=== PATIENT | female | born 1970 | race Caucasian/White ===

== ENCOUNTER 2019-11-14 16:29 | Emergency (ER) | payer OTHER, SELFPAY ==
[2019-11-14 16:47] VITALS: BP 120/75; PULSE 97; RESP 16; TEMP 37.2; O2SAT 100
--- NOTE | 2019-11-14 16:55 | ED.GENADULT ---
HPI - General Adult General Chief complaint: Dental/Oral Stated complaint: Tooth ache Time Seen by Provider: 11/14/19 16:55 Source: patient and RN notes reviewed Mode of arrival: ambulatory Limitations: no limitations History of Present Illness HPI narrative: 49-year-old female presents with complaints of RT upper dental pain for the past 3 days. 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 Antonina says she has a chipped tooth that has been present for awhile and over the last 3 days pain has increased. Dental appointment November 27, 2019. Denies any drainage. No fever or chills. No jaw swelling. No neck swelling. No limitation with speaking or swallowing. Has history of dental caries. No dental trauma. No oral lesions. Exacerbating factors consist of chewing on RT side, eating and drinking cold items. Relieving factors not eating on RT side and avoiding cold items. No dentures or bridges. Tolerating liquids well. Post menopausal for 2 years. Denies headaches, weakness, fatigue, myalgia, or facial swelling. Denies chest pain or dyspnea. Denies cough, rhinorrhea, congestion, sore throat, nausea, vomiting, abdominal pain, and diarrhea. Denies recent traveling. Denies concern for COVID-19 or exposures been home since [id number] order except for essential household needs and return home. Some parts of this dictation were generated by voice recognition software and may contain typographical and/or grammatical inaccuracies. Related Data Home Medications Medication Instructions Recorded Confirmed alendronate [Fosamax] 70 mg PO WEEKLY 11/14/19 11/14/19 amitriptyline 11/14/19 aspirin 11/14/19 atorvastatin 11/14/19 belimumab [Benlysta] 200 mg SUBCUT WEEKLY 11/14/19 11/14/19 celecoxib [Celebrex] 200 mg PO DAILY 11/14/19 11/14/19 escitalopram oxalate [Lexapro] 10 mg PO DAILY 11/14/19 11/14/19 gabapentin [Neurontin] 300 mg PO DAILY 11/14/19 11/14/19 hydroxychloroquine [Plaquenil] 200 mg PO BID 11/14/19 11/14/19 mycophenolate mofetil [CellCept] 1,000 mg PO BID 11/14/19 11/14/19 Allergies Allergy/AdvReac Type Severity Reaction Status Date / Time No Known Allergies Allergy Unknown Verified 11/14/19 17:01 Review of Systems Review of Systems: Narrative: CONSTITUTIONAL: Denies fever, chills, sweats. EYES: Denies visual changes, redness, discharge. ENT: Denies rhinorrhea, congestion, sore throat, otalgia. Complains of RT upper dental pain. CARDIOVASCULAR: Denies chest pain, palpitations, edema. RESPIRATORY: Denies dyspnea, wheezing, cough. GASTROINTESTINAL: Denies abdominal pain, nausea, vomiting, diarrhea. GENITOURINARY: Denies dysuria, hematuria, abnormal discharge. SKIN: Denies rash or itching. MUSCULOSKELETAL: Denies acute back pain, joint pain, or myalgia. NEUROLOGIC: Denies numbness or focal weakness. PSYCHIATRIC: Denies anxiety or depression. All systems reviewed & are unremarkable except as noted in HPI and below. [facility] Past Medical History Medical History delivery delivered Lupus Osteoporosis Raynaud's disease Surgical History Surgical History H/O section History of adenoidectomy History of tonsillectomy Family History Family History Sibling Hypertension Father Diabetes mellitus Grandparent Hypertension Grandparent Breast cancer Grandparent Pancreatic cancer Social History Social History Smoking packs per day: 0.5 Smoking cigarettes per day: 10.0 Years smoked: 31 Smoking pack-years: 15.50 Smoking status: Current every day smoker Tobacco type: cigarettes Second hand tobacco smoke exposure: No Alcohol intake: current Substance use: never
== END 2019-11-14 17:11 | disposition home or self-care (01) ==
PROVIDERS: Emergency Provider Nurse Practitioner Family
DX: K08.89 Other specified disorders of teeth and supporting structures (principal); F17.210 Nicotine dependence, cigarettes, uncomplicated
CPT/HCPCS: 99213; G0463

== ENCOUNTER 2020-02-06 09:45 | Emergency (ER) | payer OTHER, SELFPAY ==
--- NOTE | 2020-02-06 09:49 | ED.SKABFB ---
HPI - Skin/Abscess/Foreign Bdy General Chief complaint: Skin/Abscess/Foreign Body Stated complaint: other Time Seen by Provider: 02/06/20 09:49 Source: patient and RN notes reviewed History of Present Illness HPI narrative: Patient is a 49-year-old female who presents the urgent care with complaints of a rash to the abdomen, upper thighs and lower back. Patient states that she noticed on Tuesday after camping all weekend and staying in a popup tent. Patient states that her partner does not have any areas and neither does her daughter who both went camping and stay in the same home. Patient has not used anything to the area [id number]. States that it started with just a small area to the abdomen. States that the rash does itch. No other acute complaints. No acute distress noted. Patient read the plan of care. Related Data Home Medications Medication Instructions Recorded Confirmed amitriptyline 25 mg PO DAILY 02/06/20 02/06/20 amlodipine [Norvasc] 5 mg PO DAILY 02/06/20 02/06/20 aspirin 81 mg PO DAILY 02/06/20 02/06/20 atorvastatin [Lipitor] 40 mg PO DAILY 02/06/20 02/06/20 belimumab [Benlysta] 200 mg SUBCUT WEEKLY 02/06/20 02/06/20 celecoxib [Celebrex] 200 mg PO BID 02/06/20 02/06/20 escitalopram oxalate [Lexapro] 10 mg PO DAILY 02/06/20 02/06/20 gabapentin [Neurontin] 450 mg PO DAILY 02/06/20 02/06/20 hydroxychloroquine [Plaquenil] 200 mg PO BID 02/06/20 02/06/20 mycophenolate mofetil [CellCept] 500 mg PO QID 02/06/20 02/06/20 Allergies Allergy/AdvReac Type Severity Reaction Status Date / Time No Known Allergies Allergy Unknown Verified 02/06/20 10:02 Review of Systems Review of Systems: Narrative: CONSTITUTIONAL: Denies fever, chills, or sweats. EYES: Denies visual changes, redness, or discharge. ENT: Denies rhinorrhea, congestion, sore throat, or otalgia. CARDIOVASCULAR: Denies chest pain, palpitations, or edema. RESPIRATORY: Denies cough or dyspnea. GASTROINTESTINAL: Denies abdominal pain, nausea, vomiting, or diarrhea. GENITOURINARY: Denies dysuria or hematuria. SKIN: Reports of a raised rash to the abdomen, low back and bilateral legs MUSCULOSKELETAL: Denies back pain, joint pain, or myalgia. NEUROLOGIC: Denies headache, numbness, or weakness. All other systems reviewed are negative, except as documented in HPI. [facility] Social History Social History Smoking packs per day: 0.5 Smoking cigarettes per day: 10.0 Years smoked: 31 Smoking pack-years: 15.50 Smoking status: Current every day smoker Tobacco type: cigarettes Second hand tobacco smoke exposure: No Alcohol intake: current Substance use: never Gender identity (if verbalized by the patient): Female Comments At the time of my signature, I reviewed and agree with the nursing past medical, surgical, social, and family history. There is no relevant family history pertinent to the patient complaint. Exam Narrative: Exam Narrative: GENERAL: This is a well-nourished, well-developed patient, in no apparent distress. HEAD: normocephalic, atraumatic. EYES: PERRL. Sclera clear/white. Vision is grossly intact. EARS: External ears normal NOSE: External nose normal with no obvious nasal discharge, nares without redness, no rhinorrhea. THROAT: Mucous membranes moist NECK: Neck supple SKIN: Pinpoint pruritic erythemic papules noted to the lateral upper thighs, lower abdomen and lower back NEURO: awake, alert, and oriented to person, place and time. There were no obvious focal neurologic abnormalities. EXTREMITIES: No clubbing, cyanosis, or edema. Course Vital Signs Vital signs: Vital Signs Temperature 98.7 F 02/06/20 10:01 Pulse Rate 84 02/06/20 10:01 Respiratory Rate 18 02/06/20 10:01 Blood Pressure 111/65 02/06/20 10:01 Pulse Oximetry 98 02/06/20 10:01 Temperature 98.7 F 02/06/20 10:01 Pulse Rate 84 02/06/20 10:01 Respiratory Rate 18 02/06/20 10:01 B
[2020-02-06 10:01] VITALS: BP 111/65; PULSE 84; RESP 18; TEMP 37.1; O2SAT 98
== END 2020-02-06 10:20 | disposition home or self-care (01) ==
PROVIDERS: Emergency Provider Nurse Practitioner Family
DX: L30.9 Dermatitis, unspecified (principal); F17.210 Nicotine dependence, cigarettes, uncomplicated; Z86.73 Personal history of transient ischemic attack (TIA), and cerebral infarction without residual deficits; M81.0 Age-related osteoporosis without current pathological fracture
CPT/HCPCS: 99213; G0463

== ENCOUNTER 2021-08-26 11:54 | Outpatient (CLI) | payer OTHER, SELFPAY ==
--- NOTE | 2021-08-26 | ECG_ITS ---
Measurements Intervals Dustin Rate: 79 P: 50 IL: 145 QRS: 66 QRSD: 96 T: 64 QT: 367 QTc: 421 Interpretive Statements SINUS RHYTHM MINIMAL Q WAVES- INF/LAT LEADS BORDERLINE ECG Electronically Signed On 08-26-2021 13:18:46 [employer] by Chandu Montes D.O.
== END 2021-08-26 11:55 | disposition home or self-care (01) ==
PROVIDERS: PCP Physician Assistant; Visit Provider Physician Assistant
DX: R42 Dizziness and giddiness (principal)
CPT/HCPCS: 93005

== ENCOUNTER 2021-12-29 15:13 | Emergency (ER) | payer OTHER, SELFPAY ==
[2021-12-29 15:18] VITALS: BP 97/69; PULSE 85; RESP 16; TEMP 36.7; O2SAT 98
--- NOTE | 2021-12-29 15:30 | ED.URI ---
HPI - URI/Sore Throat General Chief Complaint: Upper Respiratory Infection Stated Complaint: fever Time Seen by Provider: 12/29/21 15:30 Source: patient and RN notes reviewed Mode of arrival: ambulatory Limitations: no limitations History of Present Illness HPI Narrative: 51-year-old female presents to the [facility] with complaints of laryngitis and postnasal drip since yesterday. No treatment prior to arrival. Denies fevers. No nausea vomiting or diarrhea. Chest pain, shortness of breath or abdominal pain MD elicited complaint: sore throat Related Data Home Medications Medication Instructions Recorded Confirmed amitriptyline 25 mg tablet 25 mg PO DAILY 02/06/20 02/06/20 amlodipine 5 mg tablet (Norvasc) 5 mg PO DAILY 02/06/20 02/06/20 aspirin 81 mg chewable tablet 81 mg PO DAILY 02/06/20 02/06/20 atorvastatin 40 mg tablet (Lipitor) 40 mg PO DAILY 02/06/20 02/06/20 belimumab 200 mg/mL subcutaneous 200 mg subcut WEEKLY 02/06/20 02/06/20 auto-injector (Benlysta) celecoxib 200 mg capsule (Celebrex) 200 mg PO BID 02/06/20 02/06/20 escitalopram oxalate 10 mg tablet 10 mg PO DAILY 02/06/20 02/06/20 (Lexapro) gabapentin 300 mg capsule 450 mg PO DAILY 02/06/20 02/06/20 (Neurontin) hydroxychloroquine 200 mg tablet 200 mg PO BID 02/06/20 02/06/20 (Plaquenil) mycophenolate mofetil 500 mg 500 mg PO QID 02/06/20 02/06/20 tablet (CellCept) Allergies Allergy/AdvReac Type Severity Reaction Status Date / Time No Known Allergies Allergy Unknown Verified 02/06/20 10:02 Review of Systems Review of Systems: All systems reviewed & are unremarkable except as noted in HPI and below Constitutional: Constitutional: Reports no additional constitutional complaints, Denies chills and Denies fever(s) Eyes: Eyes: Reports no additional eye complaints ENT: Reports as per HPI Cardiovascular: Cardiovascular: Reports no additional cardiovascular complaints Respiratory: Respiratory: Reports no additional respiratory complaints Gastrointestinal: Gastrointestinal: Reports no additional gastrointestinal complaints Musculoskeletal: Musculoskeletal: Reports no additional musculoskeletal complaints Integumentary/Breasts: Skin/Breast: Reports system reviewed and no additional complaints, except as docu Neurologic: Reports system reviewed and no additional complaints, except as documented Psychiatric: Psychiatric: Reports no additional psychiatric complaints Allergic/Immunologic: Allergic/Immunologic: Reports no additional allergic/immunologic complaints PMFSH Past Medical History Medical History (Updated 12/29/21 @ 15:59 by Rosaura Marroquin APRN) delivery delivered Lupus Osteoporosis Raynaud's disease Surgical History Surgical History H/O section History of adenoidectomy History of tonsillectomy Family History Family History Sibling Hypertension Father Diabetes mellitus Grandparent Hypertension Grandparent Breast cancer Grandparent Pancreatic cancer Social History Social History Smoking packs per day: 0.5 Smoking cigarettes per day: 10.0 Years smoked: 31 Smoking pack-years: 15.50 Smoking status: Current every day smoker Tobacco type: cigarettes Second hand tobacco smoke exposure: No Alcohol intake: current Substance use: never Gender identity (if verbalized by the patient): Female Comments At the time of my signature, I reviewed and agree with the nursing past medical, surgical, social, and family history. There is no relevant family history pertinent to the patient complaint. Exam Const: General: healthy appearing, no acute distress and alert Nutritional Appearance: well nourished Orientation/consciousness: patient oriented x3 Limitations: no limitations HENMT: Head: normal to inspection Ears:
[2021-12-29 19:49] LABS: SARS-CoV-2 RNA PCR Negative
== END 2021-12-29 16:06 | disposition home or self-care (01) ==
PROVIDERS: Emergency Provider Nurse Practitioner
DX: J06.9 Acute upper respiratory infection, unspecified (principal); J04.0 Acute laryngitis; Z20.822 Contact with and (suspected) exposure to COVID-19; F17.210 Nicotine dependence, cigarettes, uncomplicated; M81.0 Age-related osteoporosis without current pathological fracture; I73.00 Raynaud's syndrome without gangrene
CPT/HCPCS: 87081; 87426; 87804; 87880; 99213; C9803; G0463; U0003; U0005

== ENCOUNTER 2022-03-08 09:58 | Emergency (ER) | payer OTHER, SELFPAY ==
--- NOTE | ~2022-03-08 | XR_ITS ---
EXAMINATION: XR foot RT min 3V DATE: 03/08/2022 10:24 INDICATION: Lateral right foot pain TECHNIQUE: Dorsoplantar, two oblique and lateral views of the right foot were obtained. COMPARISON: None. FINDINGS: 25 degrees hallux valgus with developing bunion along the medial head of the first metatarsal. Alignm ent is otherwise normal. No fracture. Mild osteoarthritis at the first metatarsophalangeal and a few interphalangeal joints. Small Achilles and plantar calcaneal spurs. Soft tissues are unremarkable. IMPRESSION: 1. Mild degenerative skeletal changes in the right foot. No etiology identified for reported lateral sided right foot pain. Reviewed, dictated and finalized at location A.
[2022-03-08 10:07] VITALS: BP 110/70; PULSE 94; RESP 16; TEMP 36.8; O2SAT 100
--- NOTE | 2022-03-08 10:07 | ED.LOWEXIN ---
HPI - Extremity Injury (Lower) General Chief Complaint: Extremity Problem,Nontraumatic Stated Complaint: rt foot pain Time Seen by Provider: 03/08/22 10:08 Source: patient, RN notes reviewed and old records reviewed Mode of arrival: ambulatory Limitations: no limitations History of Present Illness HPI Narrative: 52-year-old female presents to the [facility] with Lateral right foot pain since Tuesday, 2 days. Patient states she has had a ganglion cyst drink and in this area. Denies any injury. No bruising or swelling noted. Tenderness to the lateral aspect along the fifth metatarsal. Pain is worse with pointing and medial motion Related Data Home Medications Medication Instructions Recorded Confirmed amitriptyline 25 mg tablet 25 mg PO DAILY 02/06/20 03/08/22 amlodipine 5 mg tablet (Norvasc) 5 mg PO DAILY 02/06/20 03/08/22 aspirin 81 mg chewable tablet 81 mg PO DAILY 02/06/20 03/08/22 atorvastatin 40 mg tablet (Lipitor) 40 mg PO DAILY 02/06/20 03/08/22 belimumab 200 mg/mL subcutaneous 200 mg subcut WEEKLY 02/06/20 03/08/22 auto-injector (Benlysta) celecoxib 200 mg capsule (Celebrex) 200 mg PO BID 02/06/20 03/08/22 gabapentin 300 mg capsule 450 mg PO DAILY 02/06/20 03/08/22 (Neurontin) hydroxychloroquine 200 mg tablet 200 mg PO BID 02/06/20 03/08/22 (Plaquenil) mycophenolate mofetil 500 mg 500 mg PO QID 02/06/20 03/08/22 tablet (CellCept) Allergies Allergy/AdvReac Type Severity Reaction Status Date / Time No Known Allergies Allergy Unknown Verified 02/06/20 10:02 Review of Systems Review of Systems: All systems reviewed & are unremarkable except as noted in HPI and below Constitutional: Constitutional: Reports no additional constitutional complaints, Denies chills and Denies fever(s) Eyes: Eyes: Reports no additional eye complaints ENT: Reports system reviewed and no additional complaints, except as documented Cardiovascular: Cardiovascular: Reports no additional cardiovascular complaints Respiratory: Respiratory: Reports no additional respiratory complaints Gastrointestinal: Gastrointestinal: Reports no additional gastrointestinal complaints Musculoskeletal: Musculoskeletal: Reports as per HPI (lateral right foot) Integumentary/Breasts: Skin/Breast: Reports system reviewed and no additional complaints, except as docu Neurologic: Reports system reviewed and no additional complaints, except as documented Psychiatric: Psychiatric: Reports no additional psychiatric complaints Allergic/Immunologic: Allergic/Immunologic: Reports no additional allergic/immunologic complaints PMFSH Past Medical History Medical History (Updated 03/08/22 @ 10:38 by Rosaura Marroquin APRN) delivery delivered Lupus Osteoporosis Raynaud's disease Surgical History Surgical History H/O section History of adenoidectomy History of tonsillectomy Family History Family History Sibling Hypertension Father Diabetes mellitus Grandparent Hypertension Grandparent Breast cancer Grandparent Pancreatic cancer Social History Social History Smoking packs per day: 0.5 Smoking cigarettes per day: 10.0 Years smoked: 31 Smoking pack-years: 15.50 Smoking status: Current every day smoker Tobacco type: cigarettes Second hand tobacco smoke exposure: No Alcohol intake: current Substance use: never Gender identity (if verbalized by the patient): Female Comments At the time of my signature, I reviewed and agree with the nursing past medical, surgical, social, and family history. There is no relevant family history pertinent to the patient complaint. Exam Const: General: healthy appearing, no acute distress and alert Nutritional Appearance: well nourished Orientation/consciousness: patient oriented x3 Limitations: n
== END 2022-03-08 10:54 | disposition home or self-care (01) ==
PROVIDERS: Emergency Provider Nurse Practitioner
DX: M77.8 Other enthesopathies, not elsewhere classified (principal); M19.071 Primary osteoarthritis, right ankle and foot; F17.210 Nicotine dependence, cigarettes, uncomplicated; M81.0 Age-related osteoporosis without current pathological fracture; I73.00 Raynaud's syndrome without gangrene; Z86.73 Personal history of transient ischemic attack (TIA), and cerebral infarction without residual deficits
CPT/HCPCS: 73630; 99213; G0463

== ENCOUNTER 2022-08-26 12:53 | Emergency (ER) | payer OTHER, SELFPAY ==
--- NOTE | ~2022-08-26 | XR_ITS ---
EXAMINATION: XR chest 2V DATE: 08/26/2022 13:22 INDICATION: Shortness of breath. TECHNIQUE: Frontal and lateral views of the chest were obtained. COMPARISON: Chest 2 views 03/24/2019, chest CT 11/03/2016 FINDINGS: The lungs are hyperexpanded, consistent with emphysema. No pneumonia, pleural effusion, or pneumothorax. The heart size is normal. IMPRESSION: 1. Emphysema. Reviewed, dictated and finalized at location A. [employer]CH[employer]IC[employer] IMPRESSION: 1. Emphysema.
[2022-08-26 13:02] VITALS: BP 114/72; PULSE 73; RESP 18; TEMP 36.4; O2SAT 100
--- NOTE | 2022-08-26 13:35 | ED.UPPEXIN ---
HPI - Extremity Injury (Upper) General Chief Complaint: Upper Respiratory Infection Stated Complaint: SOB/Fever Time Seen by Provider: 08/26/22 13:15 Source: patient Mode of arrival: ambulatory Limitations: no limitations History of Present Illness HPI narrative: Patient presents today complaining of 4 day history of illness. She started with some gastrointestinal issues last week, but these have since resolved. At that time, she tested positive for COVID-19. Two days ago she started with cough, headache, shortness of breath. She developed dark yellow sputum this morning. She has been taking Tylenol and ibuprofen with some relief. History of lupus and is currently taking immunosuppressants. 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 Related Data Home Medications Medication Instructions Recorded Confirmed amitriptyline 25 mg tablet 25 mg PO DAILY 02/06/20 08/26/22 amlodipine 5 mg tablet (Norvasc) 5 mg PO DAILY 02/06/20 08/26/22 aspirin 81 mg chewable tablet 81 mg PO DAILY 02/06/20 08/26/22 atorvastatin 40 mg tablet (Lipitor) 40 mg PO DAILY 02/06/20 08/26/22 belimumab 200 mg/mL subcutaneous 200 mg subcut WEEKLY 02/06/20 08/26/22 auto-injector (Benlysta) celecoxib 200 mg capsule (Celebrex) 200 mg PO BID 02/06/20 08/26/22 gabapentin 300 mg capsule 450 mg PO DAILY 02/06/20 08/26/22 (Neurontin) hydroxychloroquine 200 mg tablet 200 mg PO BID 02/06/20 08/26/22 (Plaquenil) mycophenolate mofetil 500 mg 500 mg PO QID 02/06/20 08/26/22 tablet (CellCept) Allergies Allergy/AdvReac Type Severity Reaction Status Date / Time No Known Allergies Allergy Unknown Verified 02/06/20 10:02 Review of Systems Review of Systems: CONSTITUTIONAL: Denies body aches, fever, chills, or sweats. EYES: Denies visual changes, redness, or discharge. ENT: Denies rhinorrhea, congestion, sore throat, or otalgia. CARDIOVASCULAR: Denies chest pain, palpitations, or edema. RESPIRATORY: + cough, shortness breast. GASTROINTESTINAL: Denies abdominal pain, nausea, vomiting, or diarrhea. GENITOURINARY: Denies dysuria or hematuria. SKIN: Denies rash, itching, or wounds. MUSCULOSKELETAL: Denies back pain, joint pain, or myalgia. NEUROLOGIC: Denies numbness, tingling, or weakness.+ headache PSYCH: Denies depression or anxiety. PMFSH Past Medical History Medical History (Updated 08/26/22 @ 13:43 by Fern Kunz, LOG YARD MANAGER, ) delivery delivered Lupus Osteoporosis Raynaud's disease Surgical History Surgical History H/O section History of adenoidectomy History of tonsillectomy Family History Family History Sibling Hypertension Father Diabetes mellitus Grandparent Hypertension Grandparent Breast cancer Grandparent Pancreatic cancer Social History Social History Smoking packs per day: 0.5 Smoking cigarettes per day: 10.0 Years smoked: 31 Smoking pack-years: 15.50 Smoking status: Current every day smoker Tobacco type: cigarettes Second hand tobacco smoke exposure: No Alcohol intake: current Substance use: never Living arrangements: with family Gender identity (if verbalized by the patient): Female Comments At time of signature, I have reviewed and agree with nursing past medical, surgical, social and family history unless otherwise noted. Please see nursing chart for further information. There is no relevant family history pertinent to the presenting complaint Exam Narrative: GENERAL: Mildly ill-appearing, well-nourished, and in no acute distress. HEAD: Normocephalic, atraumatic. EYES: EOMI. No redness or drainage. Conjunctivae normal. ENT: Mucous membranes pink and moist. Nares clear. No rhinorrhea. TMs normal bilaterally. Throat normal. Uvula midline. NECK: Normal AROM. Supple. No lymphadenopathy. CHEST
== END 2022-08-26 13:50 | disposition home or self-care (01) ==
PROVIDERS: Emergency Provider Nurse Practitioner
DX: U07.1 COVID-19 (principal); F17.210 Nicotine dependence, cigarettes, uncomplicated; M81.0 Age-related osteoporosis without current pathological fracture; I73.00 Raynaud's syndrome without gangrene; Z79.82 Long term (current) use of aspirin
CPT/HCPCS: 71046; 87426; 87804; 99213; C9803; G0463

== ENCOUNTER 2023-03-07 09:40 | Emergency (ER) | payer BC, OTHER, SELFPAY ==
[2023-03-07 09:55] VITALS: BP 102/68; PULSE 89; RESP 16; TEMP 36.8; O2SAT 100
--- NOTE | 2023-03-07 10:20 | ED.GENADULT ---
HPI - General Adult General Chief complaint: Back Pain/Injury Stated complaint: back pain Time Seen by Provider: 03/07/23 10:11 Source: patient and RN notes reviewed Mode of arrival: ambulatory Limitations: no limitations History of Present Illness HPI narrative: Patient presents today complaining of bilateral low back pain x2 weeks. Patient states 2 weeks ago prior to onset of her back symptoms she had some dysuria for 2 days, but then it resolved completely. Her back pain has since spread to her suprapubic area, then she states it has spread to her bilateral hips. Denies numbness or tingling in her legs or feet, or genitalia. Denies loss of bowel or bladder control. She currently rates her pain 7/10, which increases with movement or standing. She has been taking ibuprofen and applying heat without relief. History of lupus for which she takes Plaquenil and Benlysta. She recently stopped her cellcept Related Data Home Medications Medication Instructions Recorded Confirmed amitriptyline 25 mg tablet 25 mg PO DAILY 02/06/20 03/07/23 amlodipine 5 mg tablet (Norvasc) 5 mg PO DAILY 02/06/20 03/07/23 aspirin 81 mg chewable tablet 81 mg PO DAILY 02/06/20 03/07/23 atorvastatin 40 mg tablet (Lipitor) 40 mg PO DAILY 02/06/20 03/07/23 belimumab 200 mg/mL subcutaneous 200 mg subcut WEEKLY 02/06/20 03/07/23 auto-injector (Benlysta) celecoxib 200 mg capsule (Celebrex) 200 mg PO BID 02/06/20 03/07/23 gabapentin 300 mg capsule 450 mg PO DAILY 02/06/20 03/07/23 (Neurontin) hydroxychloroquine 200 mg tablet 200 mg PO BID 02/06/20 03/07/23 (Plaquenil) Allergies Allergy/AdvReac Type Severity Reaction Status Date / Time No Known Allergies Allergy Unknown Verified 03/07/23 10:00 Review of Systems Review of Systems: CONSTITUTIONAL: Denies body aches, fever, chills, or sweats. EYES: Denies visual changes, redness, or discharge. ENT: Denies rhinorrhea, congestion, sore throat, or otalgia. CARDIOVASCULAR: Denies chest pain, palpitations, or edema. RESPIRATORY: Denies cough or dyspnea. GASTROINTESTINAL: Denies abdominal pain, nausea, vomiting, or diarrhea.+ suprapubic discomfort GENITOURINARY: Denies dysuria or hematuria. SKIN: Denies rash, itching, or wounds. MUSCULOSKELETAL:+ low back pain, bilateral hip pain NEUROLOGIC: Denies headache, numbness, tingling, or weakness. PSYCH: Denies depression or anxiety. [facility] Past Medical History Medical History (Updated 03/07/23 @ 10:37 by Fern Kunz, ELECTRONIC EQUIPMENT INSTALLER, ) delivery delivered Lupus Osteoporosis Raynaud's disease Surgical History Surgical History H/O section History of adenoidectomy History of tonsillectomy Family History Family History Sibling Hypertension Father Diabetes mellitus Grandparent Hypertension Grandparent Breast cancer Grandparent Pancreatic cancer Social History Social History Smoking packs per day: 0.5 Smoking cigarettes per day: 10.0 Years smoked: 31 Smoking pack-years: 15.50 Smoking status: Current every day smoker Tobacco type: cigarettes Second hand tobacco smoke exposure: No Alcohol intake: current Substance use: never Living arrangements: with family Gender identity (if verbalized by the patient): Female Comments At time of signature, I have reviewed and agree with nursing past medical, surgical, social and family history unless otherwise noted. Please see nursing chart for further information. There is no relevant family history pertinent to the presenting complaint Exam Narrative: GENERAL: Well-appearing, well-nourished, and in no acute distress. HEAD: Normocephalic, atraumatic. EYES: EOMI. No redness or drainage. Conjunctivae normal. ENT: Mucous membranes pink and moist. NECK: Normal AROM. CHEST
== END 2023-03-07 10:47 | disposition home or self-care (01) ==
PROVIDERS: Emergency Provider Nurse Practitioner; PCP Emergency Medicine
DX: M54.50 Low back pain, unspecified (principal); F17.210 Nicotine dependence, cigarettes, uncomplicated; M81.0 Age-related osteoporosis without current pathological fracture; I73.00 Raynaud's syndrome without gangrene; Z79.82 Long term (current) use of aspirin
CPT/HCPCS: 81003; 99213; G0463

== ENCOUNTER 2023-11-19 09:59 | Emergency (ER) | payer BC, OTHER, SELFPAY ==
--- NOTE | ~2023-11-19 | XR_ITS ---
EXAMINATION: XR chest 2V DATE: 11/19/2023 10:38 INDICATION: 2 days of productive cough TECHNIQUE: frontal and lateral views of the chest were obtained. COMPARISON: Chest radiograph dated 09/05/2022 FINDINGS: Increased lucency in the bilateral upper lung zones consistent with emphysema which is better appreci ated on CT dated 11/03/2016. No other airspace opacities, pulmonary edema, pleural effusion or pneumot horax. The cardiomediastinal silhouette is normal. Mild thoracic spondylosis. IMPRESSION: 1. Mild emphysema. No acute cardiopulmonary disease. Reviewed, dictated and finalized at location A.
[2023-11-19 10:12] VITALS: BP 108/82; PULSE 84; RESP 16; TEMP 36.8; O2SAT 98
--- NOTE | 2023-11-19 10:25 | ED.URI ---
HPI - URI/Sore Throat General Chief Complaint: Upper Respiratory Infection Stated Complaint: chest hurts,cough,SOB Time Seen by Provider: 11/19/23 10:15 Source: patient Mode of arrival: ambulatory Limitations: no limitations History of Present Illness HPI Narrative: Antonina is a 53-year-old female patient presenting to the clinic today with complaints of chest congestion, cough, hurts to take a deep breath, and shortness of breath x 10 days. She reports symptoms started with nasal congestion/sinus pressure and now is gone down into her chest. She denies any fever or chills. Feels more short of breath upon exertion. Cough is productive bringing up yellow/green phlegm. She is a current smoker. States that her grand babies got her sick. MD elicited complaint: cough, rhinorrhea, nasal congestion and other (Chest congestion, shortness breast) Related Data Home Medications Medication Instructions Recorded Confirmed amitriptyline 25 mg tablet 25 mg PO DAILY 02/06/20 11/19/23 amlodipine 5 mg tablet (Norvasc) 5 mg PO DAILY 02/06/20 11/19/23 aspirin 81 mg chewable tablet 81 mg PO DAILY 02/06/20 11/19/23 atorvastatin 40 mg tablet (Lipitor) 40 mg PO DAILY 02/06/20 11/19/23 belimumab 200 mg/mL subcutaneous 200 mg subcut WEEKLY 02/06/20 11/19/23 auto-injector (Benlysta) celecoxib 200 mg capsule (Celebrex) 200 mg PO BID 02/06/20 11/19/23 gabapentin 300 mg capsule 450 mg PO DAILY 02/06/20 11/19/23 (Neurontin) hydroxychloroquine 200 mg tablet 200 mg PO BID 02/06/20 11/19/23 (Plaquenil) Allergies Allergy/AdvReac Type Severity Reaction Status Date / Time No Known Allergies Allergy Unknown Verified 11/19/23 10:30 Review of Systems Review of Systems: Pertinent positives per HPI. Patient denies any fever, chills, rash, headache, visual changes, dizziness, chest pain, palpitations, nausea, vomiting, diarrhea, constipation, abdominal pain, or any urinary issues. [facility] Past Medical History Medical History (Updated 11/19/23 @ 10:57 by Fazal Delarosa APRN) delivery delivered Lupus Osteoporosis Raynaud's disease Surgical History Surgical History H/O section History of adenoidectomy History of tonsillectomy Family History Family History Sibling Hypertension Father Diabetes mellitus Grandparent Hypertension Grandparent Breast cancer Grandparent Pancreatic cancer Social History Social History Smoking packs per day: 0.5 Smoking cigarettes per day: 10.0 Years smoked: 31 Smoking pack-years: 15.50 Smoking status: Current every day smoker Tobacco type: cigarettes Second hand tobacco smoke exposure: No Alcohol intake: current Substance use: never Living arrangements: with family Gender identity (if verbalized by the patient): Female Comments At the time of my signature, I reviewed and agree with the nursing past medical, surgical, social, and family history. There is no relevant family history pertinent to the patient complaint. Exam Narrative: General: Well-developed, well nourished, in no apparent distress Head: Normocephalic, atraumatic Eyes: Pupils equally round and reactive to light bilaterally, EOM intact, sclera and conjunctive clear, no discharge, lids normal Ears: TMs intact and clear, ear canals clear, no drainage, grossly hearing normal. Nose: Nares patent, yellow nasal discharge, moderate inflammation, maxillary sinus tenderness. Mouth: Oral pharynx without lesions or masses, good dentition, MMM. Neck: Supple, trachea midline, no enlargement of anterior or posterior cervical nodes, no thyroid masses or goiter palpable. Cardio: Regular rate and rhythm, s1 and s2 normal, no murmur appreciated. Resp: Fine crackles heard over the lower bases bilaterally, no rhonchi, wheezing o
== END 2023-11-19 11:05 | disposition home or self-care (01) ==
PROVIDERS: Emergency Provider Nurse Practitioner Family
DX: J01.90 Acute sinusitis, unspecified (principal); J43.8 Other emphysema; F17.210 Nicotine dependence, cigarettes, uncomplicated; M81.0 Age-related osteoporosis without current pathological fracture; I73.00 Raynaud's syndrome without gangrene; Z79.82 Long term (current) use of aspirin
CPT/HCPCS: 71046; 99213; G0463

== ENCOUNTER 2024-07-07 12:54 | Emergency (ER) | payer BC, OTHER, SELFPAY ==
[2024-07-07 13:03] VITALS: BP 110/76; PULSE 92; RESP 16; TEMP 36.8; O2SAT 100
--- NOTE | 2024-07-07 13:21 | ED.URI ---
HPI - URI/Sore Throat General Chief Complaint: Upper Respiratory Infection Stated Complaint: Sinus Time Seen by Provider: 07/07/24 13:21 Source: patient Mode of arrival: ambulatory Limitations: no limitations History of Present Illness HPI Narrative: 54-year-old female presents with complaint of sinus congestion, nasal congestion, sinus headache, postnasal drainage and cough for the past 8-9 days. Afebrile. Taking [id number] Mucinex with no relief of symptoms.Taking Afrin at night to sleep. Reports sinus headache is really bad right now . Afebrile. All systems reviewed and negative except as noted above. Related Data Home Medications ?Medication ?Instructions ?Recorded ?Confirmed ?Last Taken ?Type amitriptyline 25 mg tablet 25 mg PO DAILY 02/06/20 11/19/23 Unknown History amlodipine 5 mg tablet (Norvasc) 5 mg PO DAILY 02/06/20 11/19/23 Unknown History aspirin 81 mg chewable tablet 81 mg PO DAILY 02/06/20 11/19/23 Unknown History atorvastatin 40 mg tablet (Lipitor) 40 mg PO DAILY 02/06/20 11/19/23 Unknown History belimumab 200 mg/mL subcutaneous 200 mg subcut WEEKLY 02/06/20 11/19/23 Unknown History auto-injector (Benlysta) celecoxib 200 mg capsule (Celebrex) 200 mg PO BID 02/06/20 11/19/23 Unknown History gabapentin 300 mg capsule 450 mg PO DAILY 02/06/20 11/19/23 Unknown History (Neurontin) hydroxychloroquine 200 mg tablet 200 mg PO BID 02/06/20 11/19/23 Unknown History (Plaquenil) Allergies Allergy/AdvReac Type Severity Reaction Status Date / Time amoxicillin (From Augmentin) AdvReac Intermediate Nausea and Verified 07/07/24 13:19 Vomiting clavulanic acid (From AdvReac Intermediate Nausea and Verified 07/07/24 13:19 Augmentin) Vomiting Review of Systems Review of Systems: CONSTITUTIONAL: Denies fever, chills, or sweats. EYES: Denies visual changes, redness, or discharge. ENT: Reports rhinorrhea, congestion, sinus pressure, sinus congestion, postnasal drainage. Denies sore throat, or otalgia. CARDIOVASCULAR: Denies chest pain, palpitations, or edema. RESPIRATORY: reports cough . Denies dyspnea. GASTROINTESTINAL: Denies abdominal pain, nausea, vomiting, or diarrhea. GENITOURINARY: Denies dysuria or hematuria. SKIN: Denies rash or itching. MUSCULOSKELETAL: Denies back pain, joint pain, or myalgia. NEUROLOGIC: Denies headache, numbness, or weakness. PSYCHIATRIC: Denies anxiety or depression. All other systems reviewed are negative, except as documented in HPI. COUNT INCLUDES THE [facility] Past Medical History Medical History (Updated 07/07/24 @ 13:30 by Pinky Tejada NP) Osteoporosis Raynaud's disease Lupus delivery delivered Surgical History Surgical History History of adenoidectomy History of tonsillectomy H/O section Family History Family History Sibling Hypertension Father Diabetes mellitus Grandparent Hypertension Grandparent Breast cancer Grandparent Pancreatic cancer Social History Social History Smoking packs per day: 0.5 Smoking cigarettes per day: 10.0 Years smoked: 31 Smoking pack-years: 15.50 Smoking status: Current every day smoker Tobacco type: cigarettes Second hand tobacco smoke exposure: No Alcohol intake: current Substance use: never Living arrangements: with family Gender identity (if verbalized by the patient): Female Comments At time of signature, agree with nursing past medical, surgical, social and family history. There is no relevant family history pertinent to the presenting complaint. Exam Narrative: GENERAL: This is a well-nourished, well-developed patient, in no apparent distress. HEAD: normocephalic, atraumatic. EYES: PERRL. Sclera clear/white. Vision is grossly intact. EARS: External ears normal, auditory canals clear and without drainage, TMs normal without perforation. Hearing grossly intact. NOSE: External nose normal with moderate congestion, purulent nasal drainage, frontal and maxillary sinus tenderness on palpation THROAT: Mucous membranes moist, erythematous with postnasal drainage NECK: Neck supple, non-tender without lymphadenopathy, masses or thyromegaly. CARDIOVASCULAR: Regular rate and rhythm without murmurs, gallops, or rubs. RESPIRATORY: Clear to auscultation. Breath sounds equal bilaterally. No wheezes, rales, or rhonchi. SKIN: warm, Dry, intact with no suspicious lesions or rash, good texture and turgor. NEURO: awake, alert, and oriented to person, place and time. There were no obvious focal neurologic abnormalities. EXTREMITIES: No joint tenderness, effusion, or edema noted. Course Course Level of Care: Express Care Visit Vital Signs Vital signs: Vital Signs Temperature 36.8 C 07/07/24 13:03 Pulse Rate 92 07/07/24 13:03 Respiratory Rate 16 07/07/24 13:03 Blood Pressure 110/76 07/07/24 13:03 Pulse Oximetry 100 07/07/24 13:03 Oxygen Delivery Room Air 07/07/24 13:03 Temperature 36.8 C 07/07/24 13:03 Pulse Rate 92 07/07/24 13:03 Respiratory Rate 16 07/07/24 13:03 Blood Pressure 110/76 07/07/24 13:03 Pulse Oximetry 100 07/07/24 13:03 Oxygen Delivery Room Air 07/07/24 13:03 reviewed MDM - URI/Sore Throat MDM Narrative Medical decision making narrative: will treat patient with antibiotic for bacterial sinusitis due to duration of symptoms and exam findings. Patient is aware of diagnosis, understands and agrees to treatment plan. Anticipatory guidance given. Patient agrees to follow-up as directed and is aware of reasons to seek care at the emergency department. Portions of this record may have been created with voice recognition software Differential Diagnosis Differential diagnosis: Likely upper respiratory infection, sinusitis and viral infection Discharge Plan Discharge Clinical Impression: Acute bacterial sinusitis Patient Disposition: Home, Self-Care Condition: Stable Instructions: Antibiotic Form, Sinusitis (ED) Additional Instructions: take antibiotic as prescribed until gone. Taking ctxq-kxy-aohoygb antihistamine daily such as Claritin or Zyrtec. Use an [id number]-jtl-[id number] nasal spray such as Flonase or Nasacort. Drink at least 64 oz of water a day. Place cool mist humidifier in bedroom where you sleep. Follow-up with your primary care physician if symptoms are not improving. Patient Language: Wolof Prescriptions: New doxycycline hyclate 100 mg capsule 100 mg PO BID 7 Days Qty: 14 0RF No Action cyclobenzaprine 10 mg tablet 10 mg PO TID PRN (Reason: muscle spasm) Qty: 20 0RF celecoxib [Celebrex] 200 mg Capsule 200 mg PO BID atorvastatin [Lipitor] 40 mg Tablet 40 mg PO DAILY amlodipine [Norvasc] 5 mg Tablet 5 mg PO DAILY amitriptyline 25 mg Tablet 25 mg PO DAILY gabapentin [Neurontin] 300 mg Capsule 450 mg PO DAILY aspirin 81 mg Tablet,Chewable 81 mg PO DAILY hydroxychloroquine [Plaquenil] 200 mg Tablet 200 mg PO BID Benlysta 200 mg/mL Auto-Injector 200 mg SUBCUT WEEKLY Follow-up/Referrals: PHYSICIAN,SALES REPRESENTATIVE EDUCATION COURSES [Primary Care Provider] - Time of Disposition: 13:34
== END 2024-07-07 13:40 | disposition home or self-care (01) ==
PROVIDERS: Emergency Provider Nurse Practitioner Family
DX: J01.90 Acute sinusitis, unspecified (principal); B96.89 Other specified bacterial agents as the cause of diseases classified elsewhere; F17.210 Nicotine dependence, cigarettes, uncomplicated
CPT/HCPCS: 99213; G0463